=== PATIENT | female | born 1945 | race African-American/Black ===

== ENCOUNTER → 2021-12-21 | Outpatient (CLI) | payer MEDICARE, MEDICAID ==
[~2021-12-21] MED LIST: AMLO10TA80 MT; ASPI-1406 MT; ATOR40TA70 MT; CHLO25TA2 MT; CLOP75TA33 MT; METO-539 MT
== END | disposition home or self-care (01) ==
LOC: LAB 11:23
PROVIDERS: ATTEND Specialist
DX: Z01.810 Encounter for preprocedural cardiovascular examination (principal); Z20.822 Contact with and (suspected) exposure to COVID-19
CPT/HCPCS: 87426

== ENCOUNTER 2023-12-13 16:36 | Emergency (ER) | payer MEDICARE, MEDICAID ==
[~2023-12-13] VITALS: Ht 162.6 cm; Wt 90.7 kg
[2023-12-13 16:56] VITALS: O2SAT 99
[2023-12-13 18:03] VITALS: TEMP 98.2
[2023-12-13] MEDS ORDERED: MUPI15CR11 TP (19:27)
[2023-12-13 20:17] VITALS: BP 206/108; PULSE 67; RESP 18
== END 2023-12-13 20:27 | disposition home or self-care (01) ==
LOC: ER 16:36
DX: L02.413 Cutaneous abscess of right upper limb (principal); E78.00 Pure hypercholesterolemia, unspecified; I11.9 Hypertensive heart disease without heart failure; I25.2 Old myocardial infarction; Z95.5 Presence of coronary angioplasty implant and graft
CPT/HCPCS: 99283